=== PATIENT | female | born 1995 | race Caucasian/White ===

== ENCOUNTER 2018-06-30 20:44 | Emergency (ER) | payer OTHER ==
[~2018-06-30] VITALS: Ht 167.6 cm; Wt 78.0 kg
[2018-06-30] MEDS ORDERED: ERYT1OIN6 EACHEYE (22:27)
[2018-06-30 22:37] VITALS: BP 100/73
== END 2018-06-30 22:38 | disposition home or self-care (01) ==
LOC: ER 20:45
DX: H10.89 Other conjunctivitis (principal); F17.200 Nicotine dependence, unspecified, uncomplicated; Z79.899 Other long term (current) drug therapy
CPT/HCPCS: 99283